=== PATIENT | female | born 1955 | race Caucasian/White ===

== ENCOUNTER 2022-08-01 06:59 | Outpatient (CLI) | payer MEDICARE | END 2022-08-01 23:59 | disposition short-term general hospital (02) | LOC: EMS 06:59 | DX: I48.91 Unspecified atrial fibrillation (principal); R07.9 Chest pain, unspecified; R35.0 Frequency of micturition; R19.7 Diarrhea, unspecified | CPT/HCPCS: A0425; A0427 ==

== ENCOUNTER 2022-08-10 09:53 | Outpatient (CLI) | payer MEDICARE | END 2022-08-10 09:54 | disposition EMS.NT | LOC: EMS 09:53 | DX: R00.0 Tachycardia, unspecified (principal) ==

== ENCOUNTER 2022-08-27 18:49 | Outpatient (CLI) | payer MEDICARE ==
[2022-08-29 15:10] LABS: H. PYLORI BREATH TEST Negative (Negative)
== END 2022-08-27 18:50 | disposition home or self-care (01) ==
LOC: LAB 18:49
PROVIDERS: ATTEND Hospitalist
DX: K21.9 Gastro-esophageal reflux disease without esophagitis (principal)
CPT/HCPCS: 83013

== ENCOUNTER 2023-11-26 08:00 | Outpatient (CLI) | payer MEDICARE ==
[2023-11-26 14:49] LABS: BILIRUBIN,URINE NEGATIVE (NEGATIVE); GLUCOSE, URINE (UA) NEGATIVE (NEGATIVE); KETONES,URINE (UA) NEGATIVE (NEGATIVE); LEUKOCYTE ESTERASE, URINE NEGATIVE (NEGATIVE); NITRITE,URINE POSITIVE (NEGATIVE); OCCULT BLOOD,URINE NEGATIVE (NEGATIVE); PROTEIN,URINE NEGATIVE (NEGATIVE); UROBILINOGEN,URINE 1 (NORMAL) E.U./dL (NORMAL)
[2023-11-26 15:00] LABS: CLARITY,URINE CLEAR (CLEAR); WBC,URINE 0-3 /HPF (0-5)
[2023-11-26 15:01] LABS: BACTERIA,URINE Rare /HPF (None Seen); CRYSTALS,URINE 0-2 Calcium Oxalate /LPF; RBC,URINE None Seen /HPF (0-5); SQUAMOUS EPITHELIAL CELL,UR RARE Squamous (<= Few)
== END 2023-11-26 23:59 | disposition home or self-care (01) ==
LOC: LAB.S 08:00
PROVIDERS: ATTEND Physician Assistant
DX: N32.81 Overactive bladder (principal)
CPT/HCPCS: 81001; 87086